=== PATIENT | female | born 1980 | race Caucasian/White ===

== ENCOUNTER 2021-02-21 16:24 | Outpatient (CLI) | payer BC, OTHER, SELFPAY ==
[~2021-02-21] VITALS: Ht 162.6 cm; Wt 94.9 kg
[2021-02-21] VITALS (20 sets, daily range): BP systolic 130–179; BP diastolic 69–110
[2021-02-21] MEDS ORDERED: ECOT81TA5 PO (16:49)
[2021-02-21] MEDS ORDERED: ACET500P3 PO (16:49)
[2021-02-21] MEDS ORDERED: PRENTAB9 PO (16:49)
[2021-02-21] MEDS ORDERED: LABETALOL 100MG/20ML VIAL IV STA ×2 (17:56→19:17)
[2021-02-21] MEDS ORDERED: LABE200T32 PO (18:22)
[2021-02-21 18:27] LABS: BASO # 0.1 10^3/uL (0.0-0.2); BASO % 0.5 % (0.0-1.0); EOS # 0.2 10^3/uL (0.0-0.5); EOS % 1.2 % (0.0-3.0); HEMATOCRIT 37.2 % (36.0-47.0); HEMOGLOBIN 13.4 g/dl (12.0-15.5); LYMPH # 2.8 10^3/uL (1.5-5.0); LYMPH % 17.1 % (24.0-44.0); MEAN CORPUSCULAR HEMOGLOBIN 31.9 pg (27.0-33.0); MEAN CORPUSCULAR VOLUME 88.6 fl (80.0-96.0); MONO # 1.7 10^3/uL (0.0-0.8); MONO % 10.2 % (2.0-8.0); NEUTROPHILS # 11.3 10^3/uL (1.5-8.5); NEUTROPHILS % 69.7 % (36.0-66.0); PLATELET COUNT, AUTOMATED 315 10^3/uL (150-450)
[2021-02-21 18:49] LABS: ALT/SGPT 26 U/L (12-78); BILIRUBIN,TOTAL 0.3 MG/DL (0.2-1.0); CREATININE FOR GFR 0.58 MG/DL (0.55-1.30); GLOMERULAR FILTRATION RATE > 60.0 (>60); LDH LACTATE DEHYDROGENASE 214 U/L (84-246); URIC ACID 4.7 MG/DL (2.6-6.0)
[2021-02-21 19:05] LABS: WHITE BLOOD COUNT 16.2 10^3/uL (4.0-10.0)
[2021-02-21 19:33] LABS: CREATININE,RANDOM URINE 20.5 MG/DL; TOTAL PROTEIN,RANDOM URINE < 5.0 MG/DL (0.0-12.0)
[2021-02-21] MEDS ORDERED: LABETALOL 200 MG TAB PO SCH (21:00)
[2021-02-23 16:02] LABS: URINE TOTAL PROTEIN 8.2 MG/DL (0-12)
[2021-02-23 20:38] LABS: TOTAL PROTEIN 24 HOUR URINE 217.3 MG/24HR (50-150)
== END 2021-02-21 21:46 | disposition home or self-care (01) ==
LOC: M LDO 16:24
PROVIDERS: ATTEND Obstetrics & Gynecology
DX: O13.3 Gestational [pregnancy-induced] hypertension without significant proteinuria, third trimester (principal); Z3A.30 30 weeks gestation of pregnancy; Z88.5 Allergy status to narcotic agent; Z91.048 Other nonmedicinal substance allergy status; O09.523 Supervision of elderly multigravida, third trimester
CPT/HCPCS: 36415; 59025; 81050; 82247; 82565; 82570; 83615; 84156; 84450; 84460; 84550; 85025; 96374; 96376; G0378; G0463